=== PATIENT | female | born 1950 | race Caucasian/White ===

== ENCOUNTER 2017-08-15 09:04 | Inpatient (IN) | payer MEDICARE, OTHER, SELFPAY ==
[2017-08-02 11:11] VITALS: BP 144/92; PULSE 77; RESP 16; TEMP 36.2; O2SAT 98; BMI 29.7
--- NOTE | 2017-08-02 11:15 | SDCEKG_ITS ---
Test Reason : Blood Pressure : / mmHG Vent. Rate : 067 BPM Atrial Rate : 067 BPM P-R Int : 134 ms QRS Dur : 088 ms QT Int : 380 ms P-R-T Axes : 012 -23 -02 degrees QTc Int : 401 ms Normal sinus rhythm Normal ECG Confirmed by ERNESTINA COTA ([id number]), loan expeditor ANKIT ARTIS ([id number]) on 08/08/2017 3:15:42 PM Referred By: JONATHAN Confirmed By:ERNESTINA COTA
[2017-08-02 11:44] LABS: Hematocrit 41.8 % (37-47); Hemoglobin 13.9 g/dl (12.0-15.0); Mean Corp Hgb Conc 33.3 g/gl (32-36); Mean Corpuscular Hgb 30.9 pg (27.0-32.0); Mean Corpuscular Volume 92.9 fL (81-99); Mean Platelet Vol. 10.4 fl (6.2-12.0); Platelet Count 191 K/mm3 (150-450); RBC Distribution Width CV 13.3 % (11.6-14.6); Scan Indicated on CBC? Y/N NO; White Blood Count 5.1 K/mm3 (4.4-11.0)
[2017-08-02 12:27] LABS: Anion Gap 8 (5-15); BUN 25 mg/dL (7-18); BUN/Creat Ratio 28.9 RATIO (10-20); Chloride 103 mmol/L (98-107); Creatinine, Serum 0.86 mg/dL (0.55-1.02); EST Glomerular Filtration Rate 70 mL/min (>60); Est Glom Filt Rate - Afr Amer 84 mL/min (>60); Estimated Creatinine Clearance 64.91 ml/min; Glucose 140 mg/dL (70-110); Sodium Level 139 mmol/L (136-145)
[2017-08-15] VITALS (15 sets, daily range): BP systolic 118–141; BP diastolic 65–94; PULSE 82–98; RESP 16–18; TEMP 36.2–36.9; O2SAT 86–100; BMI 29.7
[2017-08-15] MEDS: oxyCODONE HCl Cr 10 MG Tablet PO (09:41)
[2017-08-15] MEDS: Acetaminophen 500 MG Tablet 1000 MG PO ×2 (09:42→21:55)
[2017-08-15] MEDS: Celecoxib 200 MG Capsule 400 MG PO (09:42)
[2017-08-15] MEDS: Cefazolin 2 GM in Syringe IV (11:36)
--- NOTE | 2017-08-15 14:34 | RAD_ITS ---
STUDY: X-RAY - LEFT KNEE REASON FOR EXAM: Female, 66 years old. Left total knee replacement. TECHNIQUE: 2 view(s) of the knee. COMPARISON: None. FINDINGS: Normal visualized distal femur. Normal visualized proximal tibia and fibula. Normal proximal tibiofibular articulation. The patient is status post total knee replacement. There is good alignment. Postoperative soft tissue changes. RAD/Knee 1 or 2 Views IMPRESSION: Status post total knee replacement. Postoperative soft tissue changes. Electronically Signed: Brian Mendoza MD at 15:32 EST Tel [phone], Service support ,
[2017-08-15] MEDS: Dext 5%-0.45% NS 1,000 ML 100 ML IV (17:05)
--- NOTE | 2017-08-15 19:50 | NURSING ---
Removed Scopalamine patch-pt stated when had one before had an adverse reaction too it.
[2017-08-15] MEDS: Ondansetron 4 MG/2 ML Vial IV (19:53)
[2017-08-15] MEDS: Cefazolin 1 GM/50 ML BAG IV (19:53)
[2017-08-15] MEDS: 0.9% NaCl Peripheral Flush Adult/Peds IV (20:00)
[2017-08-15] MEDS: Senna/Docusate Sodium 1 Tablet 2 TABLET PO (21:55)
[2017-08-15] MEDS: Atorvastatin Calcium 20 MG Tablet PO (21:55)
[2017-08-16 02:00] VITALS: BP 124/77; PULSE 78; RESP 16; TEMP 36.9; O2SAT 99
[2017-08-16] MEDS: Cefazolin 1 GM/50 ML BAG IV (02:52)
[2017-08-16] MEDS: oxyCODONE 5 MG Tablet PO ×2 (02:52→12:07)
[2017-08-16] MEDS: Ondansetron 4 MG/2 ML Vial IV (05:45)
[2017-08-16] MEDS: Dext 5%-0.45% NS 1,000 ML 100 ML IV (05:45)
[2017-08-16] MEDS: 0.9% NaCl Peripheral Flush Adult/Peds IV ×2 (05:45→08:08)
[2017-08-16] MEDS: Acetaminophen 500 MG Tablet 1000 MG PO (05:45)
[2017-08-16 06:27] LABS: Hematocrit 36.6 % (37-47); Hemoglobin 11.9 g/dl (12.0-15.0); Mean Corp Hgb Conc 32.5 g/gl (32-36); Mean Corpuscular Hgb 30.4 pg (27.0-32.0); Mean Corpuscular Volume 93.4 fL (81-99); Mean Platelet Vol. 10.3 fl (6.2-12.0); Platelet Count 138 K/mm3 (150-450); RBC Distribution Width CV 13.5 % (11.6-14.6); RBC Distribution Width SD 45.3 fl (35.1-43.9); Red Blood Count 3.92 M/mm3 (4.2-5.4); White Blood Count 7.2 K/mm3 (4.4-11.0)
[2017-08-16 06:36] LABS: Scan Indicated on CBC? Y/N NO
[2017-08-16 06:41] LABS: Anion Gap 8 (5-15); BUN 14 mg/dL (7-18); BUN/Creat Ratio 17.6 RATIO (10-20); Calcium,Total 8.5 mg/dL (8.5-10.1); Chloride 103 mmol/L (98-107); EST Glomerular Filtration Rate 77 mL/min (>60); Est Glom Filt Rate - Afr Amer 93 mL/min (>60); Estimated Creatinine Clearance 69.78 ml/min; Glucose 130 mg/dL (70-110); Potassium 3.6 mmol/L (3.5-5.1); Sodium Level 139 mmol/L (136-145)
--- NOTE | 2017-08-16 07:29 | PCM.PN.ORT ---
Subjective: Patient is resting comfortably in bed during exam. She had some episodes of nausea yesterday evening. She required anti-emetics. She currently has pain in the knee that is very well controlled. Denies chest pain, shortness of breath, calf pain, dizziness. She feels she would like to be discharged home later today. Objective: Patient is alert and oriented ?3. No acute distress at rest. Breathing easily without respiratory distress. Inspection of left knee reveals a dressing that is clean, dry, intact. Negative Kandace bilaterally. Without signs of DVT. Sensation intact light touch bilateral lower extremities. Pedal pulses present +2 bilaterally. Patient able to actively plantar and dorsiflex bilateral feet against resistance. Neurovascularly intact. - Physical Exam Vital Signs Temp Pulse Resp BP Pulse Ox 98.5 F 78 16 124/77 H 99 08/16/17 02:00 08/16/17 02:00 08/16/17 02:00 08/16/17 02:00 08/16/17 02:00 Oxygen Delivery Method Room Air Weight: 88.6 kg Body Mass Index (BMI) 29.7 Intake and Output for Last 24 Hours 08/14/17 08/15/17 08/16/17 23:59 23:59 23:59 Intake Total 2119 1491 / 1491 Output Total 1999 Balance 2119 -509 / -509 Laboratory Tests Past 24 Hrs 08/16/17 08/16/17 06:04 06:04 WBC 7.2 RBC 3.92 L Hgb 11.9 L Hct 36.6 L MCV 93.4 MCH 30.4 MCHC 32.5 RDW 13.5 RDW Differential 45.3 H Plt Count 138 L MPV 10.3 Sodium 139 Potassium 3.6 Chloride 103 Carbon Dioxide 28.0 Anion Gap 8 BUN 14 Creatinine 0.80 Estim Creat Clear Calc 69.78 Est GFR (MDRD) Af Amer 93 Est GFR (MDRD) Non-Af 77 BUN/Creatinine Ratio 17.6 Glucose 130 H Calcium 8.5 Assessment/Plan 1. Status post left total knee arthroplasty; postop day #1 2. Continue pain medications as needed 3. DVT prophylaxis; bilateral teds, SCDs and begin aspirin therapy 3. Begin PT/OT; weightbearing as tolerated left lower extremity 4. Drop in hemoglobin/hematocrit, asymptomatic; continue to monitor 5. Encourage incentive spirometry 6. Continue discharge planning with case management. Orthopedically stable okay for discharge to home today. If patient having adequate pain control and moving well with physical therapy
--- NOTE | 2017-08-16 07:41 | PCM.DC.TKR ---
Discharge Diet: No Restrictions Discharge Activity: May Not Drive, May not drive while taking narcotic pain medications., Use Walker May shower in (days): 1 Ice area for (Minutes): 20 - every hour while awake. Weight Bearing Status: Weight bearing as tolerated Elevate: Operative Extremity Additional Activity Instructions:: Wear elastic stockings for 2 weeks after your surgery. Call your doctor if your incision/area has: Continuous Slow Oozing, Sudden Increased Bleeding, Increased Pain/ Swelling, Increased Redness, Foul Smelling Discharge Call your doctor if you observe: Fever of 101 or Higher, Coldness, Increased Pain, Numbness or Tingling, Change in Color, Shortness of breath, Chest pain, Calf discomfort, Uncontrolled pain Remove Dressing in (days):: 4 Cleanse incision/area with: Soap & Water Additional Dressing/Incision Instructions:: See postoperative pink sheet Additional Instructions: See postoperative pink sheet Allergies/Adverse Reactions: Allergies Penicillins Allergy (Verified 08/02/17 11:02) Hives Medications to take at Discharge Calcium Carb/Vitamin D [Caltrate-600 With Vit D Tab] 1 tab PO DAILY@0800 08/17/14 Omeprazole [Prilosec] 40 mg PO DAILY 08/17/14 Rosuvastatin Calcium [Crestor] 10 mg PO QHS 08/17/14 Multivitamins,Therapeutic [Multivitamin] 1 tablet PO DAILY 05/19/16 Linacolotide [Linzess] 145 mcg PO QODAY 08/02/17 Meloxicam [Mobic] 15 mg PO DAILY 08/02/17 Acetaminophen [Tylenol] 1,000 mg PO Q8 #30 tab 08/16/17 Aspirin 325 mg PO BIDCM #30 tab 08/16/17 Ondansetron HCl [Zofran] 4 mg PO Q8H PRN PRN #30 tab 08/16/17 Oxycodone [Oxyir] 5 - 10 mg PO Q4H PRN PRN #60 tablet 08/16/17 Oxycodone [Oxyir] 5 - 10 mg PO Q4H PRN PRN #60 tablet 08/16/17 Senna/Docusate Sodium [Senokot-S] 2 tab PO BID #60 tab 08/16/17 The following prescriptions were given: Oxycodone [Oxyir] 5 - 10 mg PO Q4H PRN PRN #60 tablet PRN Reason: Pain Ondansetron HCl [Zofran] 4 mg PO Q8H PRN PRN #30 tab PRN Reason: Nausea Acetaminophen [Tylenol] 1,000 mg PO Q8 #30 tab Aspirin 325 mg PO BIDCM #30 tab Senna/Docusate Sodium [Senokot-S] 2 tab PO BID #60 tab Primary Care Physician: Mando Clark MD [Primary Care Provider] -
[2017-08-16] MEDS: Calcium Carb/Vitamin D 1 TABLET Tablet PO (08:03)
[2017-08-16] MEDS: Aspirin 325 MG Tablet PO (08:03)
[2017-08-16 08:57] VITALS: BP 118/73; PULSE 94; RESP 18; TEMP 36.9; O2SAT 95
[2017-08-16 09:00] VITALS: PULSE 88
--- NOTE | 2017-08-16 10:03 | CASEMGMT ---
JOSE JOSHI Face to Face with patient for initial transition planning/care coordination assessment. RN MADELYN introduced self and role at [facility]. Patient sitting in chair, alert and oriented. Patient willing to participate in assessment and is able to answer all questions appropriately. Care providers, pharmacy, and demographics verified. See link attached. Patient wishes to discharge home, has outpatient therapy setup at [facility]. Patient states she has no further needs or concerns at this time. CM to follow for discharge planning needs that may arise. Disposition Plan: Patient to discharge home with outpatient therapy, family support, and follow-up plans in place.
[2017-08-16] MEDS: Pantoprazole Sodium 40 MG Tablet PO (10:28)
[2017-08-16] MEDS: Senna/Docusate Sodium 1 Tablet 2 TABLET PO (10:28)
[2017-08-16] MEDS: Meloxicam 15 MG Tablet PO (12:07)
[2017-08-16] MEDS: Multivitamins,Therapeutic Tablet 1 TABLET PO (12:07)
[2017-08-16 13:56] VITALS: BP 126/74; PULSE 86; RESP 18; TEMP 36.9; O2SAT 94
== END 2017-08-16 14:40 | disposition home or self-care (01) | DRG 470 ==
LOC: ACINP 09:22 → MS3 12:29
PROVIDERS: Admitting Provider Orthopaedic Surgery; Family Provider Family Medicine; PCP Family Medicine; Visit Provider Orthopaedic Surgery
PROC: 0SRD069 Replacement of Left Knee Joint with Oxidized Zirconium on Polyethylene Synthetic Substitute, Cemented, Open Approach (ICD-10-PCS; CPT 27447; principal; 2017-08-15 10:45)
DX: M17.12 Unilateral primary osteoarthritis, left knee (principal); R71.0 Precipitous drop in hematocrit; E78.00 Pure hypercholesterolemia, unspecified; Z96.651 Presence of right artificial knee joint; K21.9 Gastro-esophageal reflux disease without esophagitis; K58.1 Irritable bowel syndrome with constipation; Z79.899 Other long term (current) drug therapy; G47.30 Sleep apnea, unspecified; M46.90 Unspecified inflammatory spondylopathy, site unspecified
CPT/HCPCS: 36415; 73560; 80048; 85027; 87081; 93005; 97150; 97162; 97165; J7120; A4216; J2405; J7799

== ENCOUNTER → 2018-08-14 08:30 | Outpatient (CLI) | payer MEDICARE, OTHER, SELFPAY ==
[2017-08-15 16:23] VITALS: BMI 29.7
[2018-08-14 09:54] LABS: Anion Gap 8 (5-15); BUN 24 mg/dL (7-18); Calcium,Total 8.9 mg/dL (8.5-10.1); Chloride 106 mmol/L (98-107); Cholesterol 211 mg/dL (200); Creatinine, Serum 0.75 mg/dL (0.55-1.02); EST Glomerular Filtration Rate 82 mL/min (>60); Est Glom Filt Rate - Afr Amer 99 mL/min (>60); Glucose 89 mg/dL (74-106); High Density Lipoprotein 53 mg/dL; Sodium Level 141 mmol/L (136-145); Thyroid Stim Hormone (TSH) 1.28 uIU/mL (0.358-3.74); Triglycerides 90 mg/dL; Very Low Density Lipoprotein 18 mg/dL (5-40)
--- OUTSIDE RECORDS SUMMARY | 2018-09-30 06:54 | XMS RPT_ITS ---
:1950 Author Organization [facility] Care Team Providers Name Role Phone Mando Clark Attending Unavailable Mando Clark Referring Unavailable Mando Clark Primary Care Unavailable PROBLEMS PROBLEMS No Problem Records FoundPROCEDURES PROCEDURES No Procedure Records FoundRESULTS RESULTS BASIC METABOLIC Collected: 08/14/2018 Status: F Source: SHILA PROFILE (BMP) 8:36 AM [facility] REPOSITORY TYPE CODE TESTS RESULT OUT OF RANGE REFERENCE UNITS LAB L501.0100 74-106 mg/dL Normal GLU 89 Result Comment: Please note revised GLUCOSE reference range effective 2017. LAB L501.1000 7-18 mg/dL High BUN 24 LAB L501.1100 0.55-1.02 mg/dL Normal CREAT,SERUM 0.75 Result Comment: The validity of the calculated GFR AND GFRAA in patients over 70 years has not been determined. Clinical correlation is essential. LAB L501.1110 >60 mL/min Normal EST GFR 82 Result Comment: Non- GFR Calc LAB L501.1115 >60 mL/min Normal EST GFR - AA 99 Result Comment: GFR Calc LAB L501.1300 10-20 RATIO High BUN/CRE 32.0 LAB L501.2200 8.5-10.1 mg/dL CA Normal 8.9 LAB L501.5300 136-145 mmol/L NA Normal 141 LAB L501.5600 3.5-5.1 mmol/L K Normal 4.0 LAB L501.5900 98-107 mmol/L CL Normal 106 LAB L501.6100 21.0-32.0 mmol/L Normal CO2 27.0 LAB L501.6200 5-15 Normal GAP 8 Performed By: #### L500.2500, L500.4100, L501.9520 #### [facility] [address] [address] [place], [address] LIPID PROFILE Collected: 08/14/2018 Status: F Source: SHILA 8:36 AM [facility] REPOSITORY TYPE CODE TESTS RESULT OUT OF RANGE REFERENCE UNITS LAB L501.4900 200 mg/dL High CHOL 211 Result Comment: <200 mg/dL Desirable 200-240 mg/dL Borderline >240 mg/dL High Risk LAB L501.5000 mg/dL Normal TRIG 90 Result Comment: The drugs N-Acetylcysteine and Metamizole may falsely depress this assay. Serum Triglycerides Reference Interval Normal <150 mg/dL Borderline high 150 - 199 mg/dL High 200 - 499 mg/dL Very High > or = 500 mg/dL LAB L501.6400 mg/dL Normal HDL 53 Result Comment: The drugs N-Acetylcysteine and Metamizole may falsely depress this assay. Reference Range HDL <40 mg/dL Low HDL Cholesterol HDL >or= 60 mg/dL High HDL Cholesterol LAB L501.6500 0-130 mg/dL High LDL 140 LAB L501.6600 5-40 mg/dL Normal VLDL 18 Performed By: #### L500.2500, L500.4100, L501.9520 #### [facility] [address] [facility] [place], [address] THYROID STIM HORMONE Collected: 08/14/2018 Status: F Source: SHILA (TSH) 8:36 AM [facility] REPOSITORY TYPE CODE TESTS RESULT OUT OF RANGE REFERENCE UNITS LAB L501.9520 0.358-3.74 uIU/mL Normal TSH 1.28 Performed By: #### L500.2500, L500.4100, L501.9520 #### [facility] [address] [facility] [place], [place], [id number] ALLERGIES ALLERGIES DATE TYPE / CODE NAME / CODE REACTION SEVERITY SOURCE 08/02/2017 Drug Penicillins/ Hives Unknown [facility] Allergy/4160 [id number]([facility] [address](SNOMED XNORM) Repository CT) ENCOUNTERS ENCOUNTERS ADMIT/DISCHARGE ACCOUNT ADMITTING ENCOUNTER LOCATION SOURCE NUMBER CLASS 08/14/2018 [id number] Ambulatory [place] [facility] ing:LAB Repository PAYERS PAYERS ENCOUNTER GUARANTOR PAYER SUBSCRIBER SOURCE 08/14/2018 SHRUTHI Servando Primary DOUG LARSONDOB: [place] [id number] CR Insurance[id number] [address] B[place] Number: [facility] [id number]: [id number] Repository Date:2018-08-14 () 08/14/2018 Secondary DOUG LARSONB: Shila Insurance:HUMANA [id number] [facility] Number: Repository [id number] Date:9712-01-23[address] [address]BM: 08/14/2018 Tertiary NOT GIVENUNK Shila Insurance:SELF PAY [facility] Number: Effective Repository Date:2018-08-14
== END ==
PROVIDERS: Family Provider Family Medicine; PCP Family Medicine; Referring Provider Family Medicine; Visit Provider Family Medicine
DX: E78.5 Hyperlipidemia, unspecified (principal)
CPT/HCPCS: 80048; 80061; 84443

== ENCOUNTER → 2018-12-25 09:22 | Outpatient (CLI) | payer MEDICARE, OTHER, SELFPAY ==
--- NOTE | 2018-12-25 09:43 | BD_ITS ---
STUDY: DUAL ENERGY X-RAY ABSORPTIOMETRY / DXA REASON FOR EXAM: Female, 68 years old. The patient is postmenopausal. Loss of height. TECHNIQUE: Bone Mineral Density (BMD) measurements of lumbar spine and bilateral hips were obtained. COMPARISON: Comparison is made with prior study dated April 28, 2016. FINDINGS: Lumbar Spine (L1-L4): g/cm2 (1.084) / T-score (-0.7) / Z-score (0.9) Findings are suggestive of normal bone density with a low fracture risk. Left Femur Total: g/cm2 (0.925) / T-score (-0.7) / Z-score (0.7) Left Femoral Neck: g/cm2 (0.882) / T-score (-1.1) / Z-score (0.5) Right Femur Total: g/cm2 (0.867) / T-score (-1.1) / Z-score (0.2) Right Femoral Neck: g/cm2 (0.836) / T-score (-1.5) / Z-score (0.1) The T-Scores on the most recent prior examination were: Lumbar Spine (L1-L4): There has been worsening of bone density since the previous examination. Left Femur Total: which represents a worsening of 6%. Right Femur Total: which represents an improvement of 1.3%. BD/Dexa Bone Density Study IMPRESSION: The patient is considered osteopenic as outlined below according to World [place] Organization (WHO) criteria with a low fracture risk. There has been worsening of bone density since the previous examination. Reference Information: The T-score is the number of standard deviations above or below the standard which is normal for young adults at their peak bone mineral density. The World Health Organization (WHO) interprets the T-scores as follows: Above -1 Normal bone density Between -1 and -2.5 Osteopenia Equal to / or below -2.5 Osteoporosis As a practical clinical guideline, osteopenia may be graded as follows: Mild -1 through -1.5 Moderate -1.6 through -2.0 Severe -2.1 through -2.4 The Z-score is the number of standard deviations above or below age-matched controls. A Z-score of less than -1.5 would be considered abnormal. References: 1. NIH Osteoporosis and Related Bone Diseases http://www.osteo.org 2. International Society for Clinical Densitometry http://www.iscd.org 3. National Osteoporosis Foundation http://www.nof.org Electronically Signed: Brian Mendoza, at 12:47 EDT , Service support ,
--- NOTE | 2018-12-25 09:45 | BI_ITS ---
MAMMOGRAPHY - BILATERAL SCREENING 3-D TOMOSYNTHESIS REASON FOR EXAM: Female, 67 years old. Bilateral Screening 3-D tomosynthesis PERTINENT HISTORY: No significant family history. TECHNIQUE: 2-D mammograms and 3-D Tomosynthesis of the breast (s) were performed. CAD was performed. COMPARISON: April 26, 2016. FINDINGS: The breast composition is composed of scattered fibroglandular density. Scattered benign calcifications are seen. No dense spiculated masses or suspicious microcalcifications are identified. No architectural distortion is identified. There is no skin thickening or retraction. There has been no significant change since the prior study. BI/SCREENING MAMM (CAD), BILAT IMPRESSION: No mammographic signs of malignancy. Routine yearly mammograms recommended. ASSESSMENT CATEGORY: BIRADS Category 1: Negative. A letter regarding these results will be sent to the patient by the facility within 30 days. FOLLOW UP RECOMMENDATION: Yearly follow up mammogram recommended. (A) Approximately 10% of breast cancers are not detected by mammography. A normal mammogram should not delay biopsy of a clinically suspicious abnormality. Electronically Signed: Bao Mata MD at 13:10 EDT , Service support ,
== END ==
PROVIDERS: Family Provider Family Medicine; PCP Family Medicine; Referring Provider Family Medicine; Visit Provider Family Medicine
DX: Z78.0 Asymptomatic menopausal state (principal); Z12.31 Encounter for screening mammogram for malignant neoplasm of breast
CPT/HCPCS: 77063; 77067; 77080

== ENCOUNTER 2019-07-10 23:02 | Emergency (ER) | payer MEDICARE, OTHER, SELFPAY ==
[2019-07-10 23:03] VITALS: BP 145/98; PULSE 89; PULSE 95; RESP 17; TEMP 36.9; O2SAT 95; O2SAT 96; BMI 28.8
--- NOTE | 2019-07-10 23:13 | EKG12_ITS ---
Test Reason : CP Blood Pressure : / mmHG Vent. Rate : 085 BPM Atrial Rate : 085 BPM P-R Int : 134 ms QRS Dur : 086 ms QT Int : 372 ms P-R-T Axes : 031 -25 -01 degrees QTc Int : 442 ms Normal sinus rhythm Minimal voltage criteria for LVH, may be normal variant Borderline ECG Confirmed by MARGI GRIMALDO, LOULOU ([id number]), commissioning editor AQUILINO REMY ([id number]) on 07/16/2019 2:31:03 PM Referred By: BB Confirmed By:LOULOU KISER MD
--- NOTE | 2019-07-10 23:13 | ED.VIS.GEN ---
History of Present Illness Chief Complaint: Palpitations Informant: Patient Narrative: Patient presents feeling palpitations at home that started approximately 4 hours ago at rest. They seem to come and go. She does not feel them currently. She is never had a heart arrhythmia. She does not take any excessive stimulants including coffee or soda. No history of thyroid disease. Current severity is resolved. She has no chest pain or shortness of breath or other symptoms. She has had stress test in the remote past that were negative. She is never had a history of any heart problems per patient. Past Medical History - Allergies and Home Meds Allergies/Adverse Reactions: Allergies Penicillins Allergy (Verified 07/10/19 23:06) Hives Primary Care Physician: Franklin Alcazar MD [STAFF PHYSICIAN] - Mando Clark MD [Primary Care Provider] - Prior records reviewed: Yes Past Medical History: - - Reviewed Surgical History: cholecystectomy Lives: With Family Smoking Status: Never smoker Alcohol: None Drugs: None Review of Systems General: Denies: Chills, Fever, Sweats Eyes: Denies: Visual changes - bilaterally, Diplopia ENT: Denies: Rhinorrhea, Sore throat Cardiovascular: Reports: Palpitations, Heart racing. Denies: Chest pain Respiratory: Denies: Dyspnea, Cough, Dyspnea on exertion Gastrointestinal: Denies: Abdominal pain, Nausea, Vomiting, Diarrhea, Melena, Hematochezia Genitourinary: Denies: Dysuria, Hematuria, Frequency Musculoskeletal: Denies: Back pain, Extremity Pain Skin: Denies: Rash, Wounds Neurological: Denies: Headache, Weakness, Numbness Physical Exam Vital Signs/Narrative: Vital Signs Temp Pulse Resp BP Pulse Ox 07/10/19 23:03 98.4 F 89 17 145/98 H 95 General: Well nourished, Well developed, No Acute Distress Head: Normocephalic, Atraumatic Eyes: Perrl, EOMI ENT: Moist mucous membranes, No rhinorrhea Neck: Supple, Nontender Cardiovascular: Regular rate, Regular rhythm, No murmurs Respiratory: No distress, CTA bilaterally, Chest nontender Abdomen: Soft, Nontender, Nondistended, Normal bowel sounds Back: Nontender, Normal Inspection Extremities: Nontender, No edema Skin: Normal color, No rash Neurological: Alert, Oriented x3, Cranial nerves II-XII grossly intact, Normal Strength, Normal Sensation Psychological: Normal affect, Normal Mood Diagnostic/Tx/Re-eval Laboratory Results 07/10/19 07/10/19 20:36 20:36 WBC 7.2 RBC 4.25 Hgb 13.1 Hct 39.8 MCV 93.6 MCH 30.8 MCHC 32.9 RDW Std Deviation 45.8 H RDW Coeff of Gonzalo 13.5 Plt Count 174 MPV 10.2 Immature Gran % (Auto) 0.100 Neut % (Auto) 56.1 Lymph % (Auto) 30.8 [place] % (Auto) 8.6 Eos % (Auto) 3.8 Baso % (Auto) 0.6 Absolute Neuts (auto) 4.0 Absolute Lymphs (auto) 2.22 Nucleated RBC % 0 Sodium 140 Potassium 3.5 Chloride 106 Carbon Dioxide 27.0 Anion Gap 7 BUN 26 H Creatinine 0.83 Estim Creat Clear Calc 65.44 Est GFR (MDRD) Af Amer 88 Est GFR (MDRD) Non-Af 73 BUN/Creatinine Ratio 31.4 H Glucose 147 H Calcium 9.3 Troponin I < 0.015 - Medical Decision Making This rhythm at a rate of 85. T wave inversion inferiorly 3. Unchanged from prior EKG patient monitored. Lab work obtained. Lab work shows a BUN of 26. CBC normal. Troponin negative. Patient remained in sinus rhythm. At this time I feel she can follow-up as an outpatient. She will avoid stimulants including caffeine and follow-up with her family doctor. She was given a 24-hour Holter monitor and will follow up with cardiology ED Disposition - Plan for ED Patient: Disposition: Home or Assisted Living Instructions: Palpitations Referrals: Mando Clark MD [Primary Care Provider] - Franklin Alcazar MD [STAFF PHYSICIAN] -
[2019-07-10 23:18] LABS: Absolute Lymphocyte Count 2.22 X10^3/uL (0.83-4.51); Basophil# 0.04 X10^3/uL; Basophil% 0.6 % (0-1); Eosinophil# 0.27 X10^3/uL; Eosinophils% 3.8 % (0-5); Hematocrit 39.8 % (37-47); Hemoglobin 13.1 g/dL (12.0-15.0); Lymphocyte # 2.22 X10^3/ul (4.0); Lymphocyte % 30.8 % (19-41); Mean Corp Hgb Conc 32.9 g/dL (32-36); Mean Corpuscular Hgb 30.8 pg (27.0-32.0); Mean Corpuscular Volume 93.6 fL (81-99); Mean Platelet Vol. 10.2 fl (6.2-12.0); Monocyte# 0.62 X10^3/uL; Monocyte% 8.6 % (0-10); NRBC Flagged by Analyzer 0 % (0-5); Neutrophil # 4.04 X10^3/uL (2.7-7.7); Neutrophil % 56.1 % (47-70); Platelet Count 174 K/mm3 (150-450); RBC Distribution Width CV 13.5 % (11.6-14.6); RBC Distribution Width SD 45.8 fl (35.1-43.9); Red Blood Count 4.25 M/mm3 (4.2-5.4); White Blood Count 7.2 K/mm3 (4.4-11.0)
[2019-07-10 23:32] LABS: Anion Gap 7 (5-15); BUN 26 mg/dL (7-18); BUN/Creat Ratio 31.4 RATIO (10-20); Calcium,Total 9.3 mg/dL (8.5-10.1); Chloride 106 mmol/L (98-107); Creatinine, Serum 0.83 mg/dL (0.55-1.02); EST Glomerular Filtration Rate 73 mL/min (>60); Est Glom Filt Rate - Afr Amer 88 mL/min (>60); Estimated Creatinine Clearance 65.44 ml/min; Glucose 147 mg/dL (74-106); Potassium 3.5 mmol/L (3.5-5.1); Sodium Level 140 mmol/L (136-145)
[2019-07-11 00:14] VITALS: BP 146/92; PULSE 75; RESP 20; O2SAT 95
== END 2019-07-11 00:15 | disposition home or self-care (01) ==
LOC: ED 23:40
PROVIDERS: Emergency Provider Emergency Medicine; Family Provider Family Medicine; PCP Family Medicine
DX: R00.2 Palpitations (principal)
CPT/HCPCS: 80048; 84484; 85025; 93005; A4216

== ENCOUNTER → 2019-07-10 23:53 | Outpatient (CLI) | payer MEDICARE, OTHER, SELFPAY ==
[2019-07-10 23:03] VITALS: BMI 28.8
== END ==
LOC: ED 23:55 → PSN 07-11 01:58
PROVIDERS: Family Provider Family Medicine; PCP Family Medicine; Referring Provider Emergency Medicine; Visit Provider Emergency Medicine
DX: R00.2 Palpitations (principal)
CPT/HCPCS: 80048; 84484; 85025; 93005; 93225; 93226; 99284; A4216

== ENCOUNTER → 2019-09-06 08:57 | Outpatient (CLI) | payer MEDICARE, OTHER, SELFPAY ==
[2019-09-06 11:10] LABS: Anion Gap 5 (5-15); BUN 18 mg/dL (7-18); BUN/Creat Ratio 23.1 RATIO (10-20); Calcium,Total 8.9 mg/dL (8.5-10.1); Chloride 107 mmol/L (98-107); Cholesterol 211 mg/dL (200); Creatinine, Serum 0.78 mg/dL (0.55-1.02); EST Glomerular Filtration Rate 78 mL/min (>60); Est Glom Filt Rate - Afr Amer 95 mL/min (>60); Glucose 90 mg/dL (74-106); High Density Lipoprotein 60 mg/dL; Magnesium 2.1 mg/dL (1.6-2.6); Potassium 4.2 mmol/L (3.5-5.1); Sodium Level 141 mmol/L (136-145); Triglycerides 96 mg/dL; Very Low Density Lipoprotein 19 mg/dL (5-40)
[2019-09-06 11:15] LABS: Vitamin D,25 Hydroxy 26.6 ng/mL (29.95-100.01)
== END ==
PROVIDERS: Family Provider Family Medicine; PCP Family Medicine; Referring Provider Family Medicine; Visit Provider Family Medicine
DX: Z00.00 Encounter for general adult medical examination without abnormal findings (principal); E78.5 Hyperlipidemia, unspecified; E55.9 Vitamin D deficiency, unspecified
CPT/HCPCS: 36415; 80048; 80061; 82306; 83735

== ENCOUNTER 2020-03-17 10:30 | Emergency (ER) | payer MEDICARE, OTHER, SELFPAY ==
[2020-03-17] VITALS (7 sets, daily range): BP systolic 113–128; BP diastolic 73–92; PULSE 98–104; RESP 16–20; TEMP 36.8–37.2; O2SAT 95–97; BMI 25.7
--- NOTE | 2020-03-17 10:44 | EKG12_ITS ---
Test Reason : GEN ILLNESS Blood Pressure : / mmHG Vent. Rate : 094 BPM Atrial Rate : 094 BPM P-R Int : 132 ms QRS Dur : 086 ms QT Int : 338 ms P-R-T Axes : 055 -29 000 degrees QTc Int : 422 ms Normal sinus rhythm Normal ECG Confirmed by MARGI GRIMALDO, LOULOU ([id number]), research editor NICHOLE SOLOMON ([id number]) on 03/19/2020 9:38:02 AM Referred By: CRYSTAL Confirmed By:LOULOU KISER MD
--- NOTE | 2020-03-17 10:57 | ED.DCSUM_ITS ---
History of Present Illness Chief Complaint: General Illness Informant: Patient Narrative: Patient is a 69-year-old female who presents to the emergency department for headache, fever/chills and cough. Her has tested positive for the coronavirus. He is currently admitted to the hospital. She was told to come into the emergency department to get checked out. She currently denies any chest pain or shortness of breath. Cough has been productive of a clear sputum. Her temperature got up to 101.7 at home yesterday. She denies any leg swelling or calf pain. She has not taken anything for this. Currently no nausea/vomiting or diarrhea. She did get very diaphoretic and felt like she is going to pass out at one point. She is currently denying this now. She denies any abdominal pain or back pain. She denies a sore throat. She denies any smoking history. Past Medical History - Allergies and Home Meds Allergies/Adverse Reactions: Allergies Penicillins Allergy (Verified 03/17/20 10:36) Hives Primary Care Physician: Mando Clark MD [Primary Care Provider] - 1-2 Days if not improving Prior records reviewed: Yes Past Medical History: - - Hyperlipidemia Surgical History: cholecystectomy Smoking Status: Never smoker Review of Systems All systems negative except as indicated General: Reports: Chills, Fever, Sweats Eyes: Denies: Visual changes - bilaterally, Diplopia ENT: Denies: Rhinorrhea, Sore throat Cardiovascular: Denies: Chest pain, Palpitations Respiratory: Reports: Cough, Sputum. Denies: Dyspnea, Dyspnea on exertion Gastrointestinal: Denies: Abdominal pain, Nausea, Vomiting, Diarrhea Genitourinary: Denies: Dysuria, Hematuria, Frequency Musculoskeletal: Denies: Back pain, Extremity Pain Skin: Denies: Rash, Wounds Neurological: Reports: Headache. Denies: Weakness, Numbness Physical Exam Vital Signs/Narrative: Vital Signs Temp Pulse Resp BP Pulse Ox 03/17/20 10:33 98.3 F 104 H 16 120/84 H 96 Inital Vital Signs reviewed: Yes General: Well nourished, Well developed, No Acute Distress Head: Normocephalic, Atraumatic Eyes: Perrl, EOMI ENT: Moist mucous membranes, No rhinorrhea Neck: Supple, Nontender Cardiovascular: Regular rhythm, No murmurs, Tachycardia Respiratory: No distress, CTA bilaterally, Chest nontender, - - Coughing throughout exam Abdomen: Soft, Nontender, Nondistended, Normal bowel sounds Back: Nontender, Normal Inspection Extremities: Nontender, No edema Skin: Normal color, No rash Neurological: Alert, Oriented x3, Cranial nerves II-XII grossly intact, Normal Strength, Normal Sensation Psychological: Normal affect, Normal Mood Diagnostic/Tx/Re-eval - EKG Initial EKG Interpretation: - - Rate of 94 bpm in sinus rhythm. Normal intervals. Normal axis. No ST elevations or depressions appreciated. No T wave abnormalities. No prior EKG for comparison. - Medical Decision Making Patient presents to the emergency department for cough, fever/chills. She has a known coronavirus exposure. Will test here in the emergency department as well as obtain basic lab work, EKG and chest x-ray. Upon arrival to the emerge department she does not appear in any acute distress. She is mildly tachycardic. No chest pain or shortness of breath. Satting well on room air. Lab work showed the patient to be leukopenic. Otherwise no significant abnormality. Chest x-ray did not show any evidence of consolidation. She has been stable throughout ED stay. She does feel well at this time. She states she otherwise would not have come to the emergency department but she was told to. Her coronavirus test did come back positive. She understands she is to self isolate for the next 2 weeks. She knows to return to the emerge department if she develops any chest pain or shortness of breath. She can continue to take Tylenol as needed. Will discharge home in stable condition at this time. ED Disposition - Plan for ED Patient: Disposition: Home or Assisted Living Diagnosis: Coronavirus infection Referrals: Mando Clark MD [Primary Care Provider] - 1-2 Days if not improving Additional Instructions: If feeling well self isolate for 14 days. If you develop any shortness of breat h or chest pain please return to the emerge department immediately.
--- NOTE | 2020-03-17 11:04 | RAD_ITS ---
STUDY: X-RAY CHEST REASON FOR EXAM: Female, 69 years old. COUGH FEVER BODY ACHES. WAS DIAGNOSED WITH COVID YESTERDAY TECHNIQUE: Single AP portable view of the chest. COMPARISON: Comparison is made with prior study dated April 22, 2016. FINDINGS: Minimal increased linear markings at the left lung base suggestive of mild scarring. There is no demonstrated pleural abnormality. Normal size heart. Normal mediastinum and daren. Normal visualized pulmonary arteries. Normal visualized aortic arch and descending thoracic aorta. There are diffuse degenerative changes of the visualized thoracic spine. Normal visualized ribs, clavicles, and shoulders. There is no demonstrated abnormality of the visualized soft tissue structures of the upper abdomen. RAD/Chest 1 View (Portable) IMPRESSION: No acute abnormality is seen. Electronically Signed: Brian Mendoza, at 11:16 EDT , Service support ,
[2020-03-17 11:40] LABS: Basophil# 0.01 X10^3/uL; Basophil% 0.3 % (0-1); Eosinophil# 0.02 X10^3/uL; Eosinophils% 0.7 % (0-5); Hematocrit 41.3 % (37-47); Hemoglobin 13.4 g/dL (12.0-15.0); Lymphocyte % 19.6 % (19-41); Mean Corp Hgb Conc 32.4 g/dL (32-36); Mean Corpuscular Hgb 30.7 pg (27.0-32.0); Mean Corpuscular Volume 94.5 fL (81-99); Monocyte# 0.34 X10^3/uL; Monocyte% 11.1 % (0-10); NRBC Flagged by Analyzer 0 % (0-5); Neutrophil # 2.04 X10^3/uL (2.7-7.7); Neutrophil % 66.7 % (47-70); POSITIVE DIFFERENTIAL YES; Platelet Count 131 K/mm3 (150-450); RBC Distribution Width CV 12.8 % (11.6-14.6); RBC Distribution Width SD 43.7 fl (35.1-43.9); Red Blood Count 4.37 M/mm3 (4.2-5.4); White Blood Count 3.1 K/mm3 (4.4-11.0)
[2020-03-17 11:47] LABS: Differential Indicated SCAN CRITERIA MET
[2020-03-17 11:52] LABS: AST(SGOT) 35 U/L (15-37); Alanine Aminotransfer ALT/SGPT 37 U/L (13-56); Albumin, Serum 3.8 g/dL (3.2-5.0); Alkaline Phosphatase 68 U/L (45-117); Anion Gap 6 (5-15); BUN 13 mg/dL (7-18); BUN/Creat Ratio 16.4 RATIO (10-20); Calcium,Total 8.7 mg/dL (8.5-10.1); Chloride 103 mmol/L (98-107); Creatinine, Serum 0.79 mg/dL (0.55-1.02); EST Glomerular Filtration Rate 76 mL/min (>60); Est Glom Filt Rate - Afr Amer 92 mL/min (>60); Estimated Creatinine Clearance 53.56 ml/min; Globulin 3.9 g/dL (2.2-4.2); Glucose 115 mg/dL (74-106); Potassium 3.7 mmol/L (3.5-5.1); Protein, Total 7.7 g/dL (6.4-8.2); Sodium Level 137 mmol/L (136-145)
[2020-03-17 12:05] LABS: Differential Comment SCANNED; Platelet Estimate SLT DEC (ADEQ)
[2020-03-18 14:03] LABS: Pathologist Review Reviewed
== END 2020-03-17 14:21 | disposition home or self-care (01) ==
PROVIDERS: Emergency Provider Emergency Medicine; PCP Family Medicine
DX: U07.1 COVID-19 (principal); E78.5 Hyperlipidemia, unspecified; Z88.0 Allergy status to penicillin; Z79.82 Long term (current) use of aspirin
CPT/HCPCS: 71045; 80053; 84484; 85025; 87635; 93005; 99284; G2023; A4216; U0003

== ENCOUNTER → 2020-09-16 08:31 | Outpatient (CLI) | payer MEDICARE, OTHER, SELFPAY ==
[2020-03-17 10:33] VITALS: BMI 25.7
[2020-09-16 10:35] LABS: Anion Gap 4 (5-15); BUN 21 mg/dL (7-18); BUN/Creat Ratio 27.8 RATIO (10-20); Chloride 105 mmol/L (98-107); Cholesterol 199 mg/dL (200); Creatinine, Serum 0.76 mg/dL (0.55-1.02); EST Glomerular Filtration Rate 81 mL/min (>60); Est Glom Filt Rate - Afr Amer 97 mL/min (>60); Glucose 89 mg/dL (74-106); High Density Lipoprotein 65 mg/dL; Potassium 4.1 mmol/L (3.5-5.1); Sodium Level 140 mmol/L (136-145); Triglycerides 62 mg/dL; Very Low Density Lipoprotein 12 mg/dL (5-40)
[2020-09-18 07:03] LABS: SARS-COV-2 TOTAL ABS Reactive (Nonreactive)
== END ==
PROVIDERS: PCP Family Medicine; Referring Provider Family Medicine; Visit Provider Family Medicine
DX: E78.5 Hyperlipidemia, unspecified (principal); E55.9 Vitamin D deficiency, unspecified
CPT/HCPCS: 36415; 80048; 80061; 82306; 86769

== ENCOUNTER 2021-10-27 16:55 | Outpatient (CLI) | payer MEDICARE, OTHER, SELFPAY ==
[2021-10-27 17:42] LABS: Absolute Lymphocyte Count 1.75 X10^3/uL (0.83-4.51); Absolute Neutrophil Count 2.5 X10^3/uL (2.0-7.7); Basophil# 0.04 X10^3/uL; Basophil% 0.8 % (0-1); Eosinophil# 0.23 X10^3/uL; Eosinophils% 4.5 % (0-5); Hematocrit 41.2 % (37-47); Hemoglobin 13.8 g/dL (12.0-15.0); Lymphocyte # 1.75 X10^3/ul (0.83-4.51); Lymphocyte % 34.4 % (19-41); Mean Corp Hgb Conc 33.5 g/dL (32-36); Mean Corpuscular Hgb 31.3 pg (27.0-32.0); Mean Corpuscular Volume 93.4 fL (81-99); Mean Platelet Vol. 10.5 fl (6.2-12.0); Monocyte# 0.52 X10^3/uL; Monocyte% 10.2 % (0-10); NRBC Flagged by Analyzer 0 % (0-5); Neutrophil # 2.53 X10^3/uL (2.7-7.7); Neutrophil % 49.9 % (47-70); Platelet Count 191 K/mm3 (150-450); RBC Distribution Width CV 13.2 % (11.6-14.6); RBC Distribution Width SD 45.1 fl (35.1-43.9); Red Blood Count 4.41 M/mm3 (4.2-5.4); White Blood Count 5.1 K/mm3 (4.4-11.0)
[2021-10-27 18:43] LABS: Anion Gap 5 (5-15); BUN 18 mg/dL (7-18); Calcium,Total 9.7 mg/dL (8.5-10.1); Chloride 105 mmol/L (98-107); Creatinine, Serum 0.82 mg/dL (0.55-1.02); EST Glomerular Filtration Rate 73 mL/min (>60); Est Glom Filt Rate - Afr Amer 89 mL/min (>60); Glucose 98 mg/dL (74-106); Magnesium 2.2 mg/dL (1.6-2.6); Potassium 4.1 mmol/L (3.5-5.1); Sodium Level 139 mmol/L (136-145); Thyroid Stim Hormone (TSH) 1.47 uIU/mL (0.358-3.74)
== END 2021-10-27 23:59 | disposition home or self-care (01) ==
LOC: MFPLAB 16:59
PROVIDERS: PCP Family Medicine; Referring Provider Family Medicine; Visit Provider Family Medicine
DX: I49.9 Cardiac arrhythmia, unspecified (principal)
CPT/HCPCS: 36415; 80048; 83735; 84443; 85025

== ENCOUNTER → 2022-02-10 | Outpatient (CLI) | payer MEDICARE, OTHER, SELFPAY ==
--- NOTE | 2022-02-10 11:44 | BI_ITS ---
MAMMOGRAPHY - BILATERAL SCREENING REASON FOR EXAM: Female, 71 years old. Routine annual screening examination. PERTINENT HISTORY: Non-contributory. TECHNIQUE: Digital bilateral breast linn (3D mammographic acquisition) in the CC and MLO projections. 2-D mediolateral oblique (MLO) and craniocaudad (CC) views of both breasts were obtained. CAD: Full Field Digital Mammography with Computer Added Detection was performed. COMPARISON: Comparison is made with prior study 12/25/2018 and 04/26/2016. FINDINGS: Breast Composition: There are scattered areas of fibroglandular density. There are no dominant masses or suspicious calcifications. No other significant abnormalities are identified. There has been no significant change since the prior study. BI/SCRN MAMM (CAD)W/LINN BILAT IMPRESSION: Stable bilateral screening mammogram. Yearly follow-up mammogram recommended. (A) ASSESSMENT CATEGORY: BIRADS Category 1: Negative. A letter regarding these results will be sent to the patient by the facility within 30 days. Approximately 10% of breast cancers are not detected by mammography. A normal mammogram should not delay biopsy of a clinically suspicious abnormality. [id number] Electronically Signed: Brian Mnedoza MD at 12:44 EDT ,
--- NOTE | 2022-02-10 12:20 | BD_ITS ---
STUDY: DUAL ENERGY X-RAY ABSORPTIOMETRY / DXA REASON FOR EXAM: Female, 71 years old. 627.8Menopausal postmenopausalBONE DENSITY REASON FOR EXAM TECHNIQUE: Bone Mineral Density (BMD) measurements of lumbar spine and bilateral hips were obtained. COMPARISON: Comparison is made with prior study dated 12/25/2018. FINDINGS: Lumbar Spine (L1-L4): g/cm2 (0.958) / T-score (-0.8) / Z-score (1.4) Findings are suggestive of normal bone density with a low fracture risk. Left Femur Total: g/cm2 (0.843) / T-score (-0.8) / Z-score (0.8) Left Femoral Neck: g/cm2 (0.712) / T-score (-1.2) / Z-score (0.6) Right Femur Total: g/cm2 (0.799) / T-score (-1.2) / Z-score (0.4) Right Femoral Neck: g/cm2 (0.665) / T-score (-1.7) / Z-score (0.2) The T-Scores on the most recent prior examination were: Lumbar Spine (L1-L4): There has been worsening of bone density since the previous examination. Left Femur Total: which represents a worsening of 2.1%. Right Femur Total: which represents a worsening of 0.7%. BD/Dexa Bone Density Study IMPRESSION: The patient is considered osteopenic as outlined below according to World [place] Organization (WHO) criteria with a moderate fracture risk. There has been worsening of bone density since the previous examination. Reference Information: The T-score is the number of standard deviations above or below the standard which is normal for young adults at their peak bone mineral density. The World Health Organization (WHO) interprets the T-scores as follows: Above -1 Normal bone density Between -1 and -2.5 Osteopenia Equal to / or below -2.5 Osteoporosis As a practical clinical guideline, osteopenia may be graded as follows: Mild -1 through -1.5 Moderate -1.6 through -2.0 Severe -2.1 through -2.4 The Z-score is the number of standard deviations above or below age-matched controls. A Z-score of less than -1.5 would be considered abnormal. References: 1. NIH Osteoporosis and Related Bone Diseases www osteo.org 2. International Society for Clinical Densitometry www iscd.org 3. National Osteoporosis Foundation www nof.org Electronically Signed: Brian Mendoza MD at 13:07 EDT ,
== END | disposition home or self-care (01) ==
LOC: OPBD 11:42
PROVIDERS: PCP Family Medicine; Referring Provider Family Medicine; Visit Provider Family Medicine
DX: Z13.820 Encounter for screening for osteoporosis (principal); Z78.0 Asymptomatic menopausal state; Z12.31 Encounter for screening mammogram for malignant neoplasm of breast
CPT/HCPCS: 77063; 77067; 77080

== ENCOUNTER → 2022-05-05 | Outpatient (CLI) | payer MEDICARE, OTHER, SELFPAY ==
--- NOTE | 2022-05-05 06:48 | ECHOD_ITS ---
Reason For Study: Arrhythmia Procedure This was a 2D Doppler, Color Flow transthoracic echocardiogram. The study was technically difficult. Contrast injection was performed. Exam performed in department. Left Ventricle Based upon the 2D echocardiographic and contrast enhanced images obtained there appears to be grossly normal left ventricular size, wall motion, and systolic function. The estimated ejection fraction is 55 %. No evidence for diastolic dysfunction. Right Ventricle Normal RV size. Normal systolic function. Atria Normal left atrium. Normal right atrium. No doppler evidence for ASD. Mitral Valve There is no mitral annular calcification. Mild focal mitral valve calcification of the anterior leaflet. Trivial mitral valve insufficiency. Tricuspid Valve Normal tricuspid valve. Mild tricuspid valve insufficiency. Right ventricular systolic pressure estimated to be 23 mmHg. Aortic Valve Trisinus/trileaflet aortic valve. Normal aortic valve. Trivial aortic valve insufficiency. Pulmonic Valve The pulmonic valve is not well visualized. Great Vessels Normal sized aortic root. Pericardium/Pleural No pericardial effusion. Medication 20 gauge I.V. with prn adaptor inserted into right arm. Diluted definity 1ml given slow IV push to enhance endocardial definition. MMode/2D Measurements & Calculations LVIDd: 4.7 cm IVSd: 0.88 cm Ao root diam: 2.8 cm LVIDs: 3.1 cm LVPWd: 0.61 cm LA dimension: 3.2 cm RVDd: 3.0 cm FS: 34.0 % LAV(MOD-bp): 36.1 ml LA A4 area: 13.7 cm2 RA A4 area: 10.6 cm2 LAV(MOD-bp) Indexed: 18.2 ml/m2 LAV(MOD-sp2): 38.3 ml LAV(MOD-sp4): 32.3 ml Time Measurements MV dec time: 0.17 sec Doppler Measurements & Calculations MV E max benjamín: 61.4 cm/sec Lat Peak E' Benjamín: 11.8 cm/sec Med Peak E' Benjamín: 8.0 cm/sec MV A max benjamín: 85.5 cm/sec E/E' lat: 5.2 E/E' med: 7.7 MV E/A: 0.72 MV V2 max: 107.6 cm/sec MV P1/2t max benjamín: 96.4 cm/sec Ao V2 max: 138.3 cm/sec MV max P.6 mmHg MV P1/2t: 70.3 msec Ao max P.7 mmHg MV V2 mean: 63.2 cm/sec MV dec slope: 401.8 cm/sec2 MV mean P.9 mmHg MV V2 VTI: 22.6 cm MVA(P1/2t): 3.1 cm2 LV V1 max: 102.5 cm/sec PA V2 max: 77.2 cm/sec TR max benjamín: 222.5 cm/sec LV V1 max P.2 mmHg PA V2 mean: 57.1 cm/sec TR max P.2 mmHg LV V1 mean P.5 mmHg LV V1 mean: 75.8 cm/sec LV V1 VTI: 23.6 cm ECHO/Echo Complete W/ Contrast Interpretation Summary The study was technically difficult. Contrast injection was performed. Based upon the 2D echocardiographic and contrast enhanced images obtained there appears to be grossly normal left ventricular size, wall motion, and systolic function. The estimated ejection fraction is 55 %. Mild focal mitral valve calcification of the anterior leaflet. Trivial mitral valve insufficiency. Mild tricuspid valve insufficiency. Trivial aortic valve insufficiency. Right ventricular systolic pressure estimated to be 23 mmHg. No evidence for diastolic dysfunction. Ordering Physician: Mando Oviedo Referring Physician: Mando Oviedo Performed By: Erich Hart RCS
--- NOTE | 2022-05-05 13:37 | STRESSREP ---
Stress Test Report Date: 05-05-2022 Procedure: Exercise tolerance test/imaging study Indications: Cardiac dysrhythmia; PACs; PVCs; ventricular tachycardia Consent: Per the patient Procedure: The patient exercised on a Manuel protocol for 4 minutes and 30 seconds completing Stage I and 1 minute and 30 seconds of Stage II achieving a peak heart rate of 150 bpm (100% predicted maximal heart rate) with a peak blood pressure 172/78 mmHg and a peak MET capacity of 7 METs. The baseline ECG demonstrated normal sinus rhythm. The peak exercise ECG demonstrated no obvious ECG changes. There were no cardiac dysrhythmias pretest, during exercise, or recovery. The functional capacity was considered fair. There was no complaint of chest discomfort during exercise or recovery. The examination was discontinued secondary to dyspnea. Impression: 1. Technically adequate (percent predicted maximal heart rate greater than 85%) exercise tolerance test 2. Peak exercise ECG with no obvious ECG change 3. There were no cardiac dysrhythmias pretest, during exercise, or recovery 4. Nuclear images pending Myocardial perfusion imaging study: Technique: The patient was injected with 14.4 mCi of technetium 99m Cardiolite and subsequently rest SPECT Cardiolite nuclear imaging was obtained in the horizontal long, vertical long, and short axis views. The patient exercised on a Manuel protocol for 4 minutes and 30 seconds completing Stage I and 1 minute and 30 seconds of Stage II achieving a peak heart rate of 150 bpm (100% predicted maximal heart rate) with a peak blood pressure 172/78 mmHg and a peak MET capacity of 7 METs. The patient was injected with 44.1 mCi of technetium 99m Cardiolite and subsequently stress SPECT Cardiolite nuclear imaging was obtained in the horizontal long, vertical long, and short axis views. A gated Cardiolite study at peak stress was obtained. Interpretation: Rest and stress SPECT Cardiolite nuclear imaging status post realignment, normalization, and attenuation correction, demonstrates the appearance of relative uniform tracer uptake and myocardial perfusion appearing within normal limits. There is end systolic thickening and brightening. The gated Cardiolite study demonstrates myocardial thickening and inward wall motion. The reported LVEF is 81%. Impression: 1. Rest and stress SPECT Cardiolite nuclear imaging demonstrate relative uniform tracer uptake and myocardial perfusion appearing within normal limits. 2. The gated Cardiolite study reports an LVEF of 81%. This note was generated with [employer] software. It may contain incorrect words, spelling, and punctuation that were not noted in checking the note before signing.
== END | disposition home or self-care (01) ==
PROVIDERS: PCP Family Medicine; Referring Provider Internal Medicine Cardiovascular Disease; Visit Provider Internal Medicine Cardiovascular Disease
DX: I47.2 Ventricular tachycardia (principal); I49.3 Ventricular premature depolarization; R06.00 Dyspnea, unspecified; R00.2 Palpitations
CPT/HCPCS: 78452; 93017; 93306; A9500; Q9957; A4216; C8929

== ENCOUNTER → 2022-05-18 | Outpatient (CLI) | payer MEDICARE, OTHER, SELFPAY | END | disposition home or self-care (01) | LOC: LABSPEC 05-19 07:55 | PROVIDERS: PCP Family Medicine; Visit Provider Family Medicine | DX: R39.89 Other symptoms and signs involving the genitourinary system (principal) | CPT/HCPCS: 87086; 87088 ==

== ENCOUNTER → 2022-12-19 | Outpatient (CLI) | payer MEDICARE, OTHER, SELFPAY ==
--- NOTE | 2022-12-19 14:55 | RAD_ITS ---
INDICATION: BURSITIS OF RIGHT HIP EXAMINATION/TECHNIQUE: X-RAY - RIGHT XR Hip Unilateral with Pelvis when performed; 2-3 Views COMPARISON: 07/30/2014. FINDINGS: SOFT TISSUES: Unremarkable. BONES/JOINTS: No fracture or dislocation. Mild degenerative changes of the right hip. No significant degenerative changes of the left hip. No erosive changes. RAD/HIP, UNI W/ Pelvis 2-3 Views IMPRESSION: Mild degenerative changes of the right hip. No acute abnormality. Electronically Signed: Beltran Cota DO at 0:17 EDT ,
== END | disposition home or self-care (01) ==
LOC: RAD 14:54
PROVIDERS: PCP Family Medicine; Referring Provider Nurse Practitioner Acute Care; Visit Provider Nurse Practitioner Acute Care
DX: M70.71 Other bursitis of hip, right hip (principal); M25.551 Pain in right hip
CPT/HCPCS: 73502

== ENCOUNTER → 2023-02-16 | Outpatient (CLI) | payer MEDICARE, OTHER, SELFPAY ==
[2023-02-16 08:43] LABS: AST(SGOT) 25 U/L (15-37); Alanine Aminotransfer ALT/SGPT 37 U/L (13-56); Albumin, Serum 3.7 g/dL (3.2-5.0); Alkaline Phosphatase 88 U/L (45-117); Anion Gap 5 (5-15); BUN 24 mg/dL (7-18); BUN/Creat Ratio 32.3 RATIO (10-20); Bilirubin, Direct 0.23 mg/dL (0.00-0.30); Calcium,Total 9.4 mg/dL (8.5-10.1); Chloride 107 mmol/L (98-107); Cholesterol 179 mg/dL (200); Creatinine, Serum 0.74 mg/dL (0.55-1.02); EST Glomerular Filtration Rate 82 mL/min (>60); Est Glom Filt Rate - Afr Amer 99 mL/min (>60); Globulin 3.8 g/dL (2.2-4.2); Glucose 107 mg/dL (74-106); High Density Lipoprotein 57 mg/dL; Potassium 4.2 mmol/L (3.5-5.1); Protein, Total 7.5 g/dL (6.4-8.2); Sodium Level 139 mmol/L (136-145); Triglycerides 84 mg/dL; Very Low Density Lipoprotein 17 mg/dL (5-40)
== END | disposition home or self-care (01) ==
LOC: LAB 06:54
PROVIDERS: Nurse Practitioner Gerontology; PCP Family Medicine; Referring Provider Anesthesiology Pain Medicine; Visit Provider Anesthesiology Pain Medicine
DX: E78.00 Pure hypercholesterolemia, unspecified (principal); Z79.1 Long term (current) use of non-steroidal anti-inflammatories (NSAID)
CPT/HCPCS: 36415; 80048; 80061; 80076

== ENCOUNTER → 2023-11-30 | Outpatient (CLI) | payer MEDICARE, OTHER, SELFPAY ==
[2023-11-30 10:31] LABS: AST(SGOT) 31 U/L (15-37); Alanine Aminotransfer ALT/SGPT 41 U/L (13-56); Albumin, Serum 3.6 g/dL (3.2-5.0); Alkaline Phosphatase 82 U/L (45-117); Anion Gap 6 (5-15); BUN 20 mg/dL (7-18); BUN/Creat Ratio 26.4 RATIO (10-20); Calcium,Total 8.8 mg/dL (8.5-10.1); Chloride 108 mmol/L (98-107); Cholesterol 182 mg/dL (200); Creatinine, Serum 0.76 mg/dL (0.55-1.02); EST Glomerular Filtration Rate 80 mL/min (>60); Est Glom Filt Rate - Afr Amer 96 mL/min (>60); Globulin 3.5 g/dL (2.2-4.2); Glucose 105 mg/dL (74-106); High Density Lipoprotein 60 mg/dL; Potassium 3.9 mmol/L (3.5-5.1); Protein, Total 7.1 g/dL (6.4-8.2); Sodium Level 141 mmol/L (136-145); Triglycerides 75 mg/dL; Very Low Density Lipoprotein 15 mg/dL (5-40)
== END | disposition home or self-care (01) ==
LOC: MTLAB 08:37
PROVIDERS: Nurse Practitioner Gerontology; PCP Family Medicine; Referring Provider Family Medicine; Visit Provider Family Medicine
DX: Z00.00 Encounter for general adult medical examination without abnormal findings (principal); E78.00 Pure hypercholesterolemia, unspecified
CPT/HCPCS: 36415; 80048; 80061; 80076

== ENCOUNTER → 2024-02-06 | Outpatient (CLI) | payer MEDICARE, OTHER, SELFPAY | END | disposition home or self-care (01) | LOC: PSN 07:49 | PROVIDERS: PCP Family Medicine; Referring Provider Nurse Practitioner Gerontology; Visit Provider Nurse Practitioner Gerontology | DX: R00.2 Palpitations (principal) | CPT/HCPCS: 93225; 93226 ==

== ENCOUNTER → 2024-09-16 | Outpatient (CLI) | payer MEDICARE, OTHER, SELFPAY ==
--- NOTE | 2024-09-16 08:24 | BI_ITS ---
MAMMOGRAPHY - BILATERAL SCREENING REASON FOR EXAM: Female, 73 years old. Routine annual screening examination. PERTINENT HISTORY: Non-contributory. TECHNIQUE: Digital bilateral breast linn (3D mammographic acquisition) in the CC and MLO projections. 2-D mediolateral oblique (MLO) and craniocaudad (CC) views of both breasts were obtained. CAD: Full Field Digital Mammography with Computer Added Detection was performed. COMPARISON: Comparison is made with prior study dated February 10, 2022 and December 25, 2018. FINDINGS: Breast Composition: There are scattered areas of fibroglandular density. There are no dominant masses or suspicious calcifications. No other significant abnormalities are identified. There has been no significant change since the prior study. BI/SCRN MAMM (CAD)W/LINN BILAT IMPRESSION: Stable bilateral screening mammogram. Yearly follow-up mammogram recommended. (A) ASSESSMENT CATEGORY: BIRADS Category 1: Negative. A letter regarding these results will be sent to the patient by the facility within 30 days. Approximately 10% of breast cancers are not detected by mammography. A normal mammogram should not delay biopsy of a clinically suspicious abnormality. [id number] Electronically Signed: Brian Mendoza MD at 9:16 EST ,
== END | disposition home or self-care (01) ==
LOC: OPBI 08:22
PROVIDERS: PCP Family Medicine; Referring Provider Family Medicine; Visit Provider Family Medicine
DX: Z12.31 Encounter for screening mammogram for malignant neoplasm of breast (principal)
CPT/HCPCS: 77063; 77067